=== PATIENT | female | born 1960 | race Caucasian/White ===

== ENCOUNTER 2017-09-22 00:15 | Inpatient (IN) | payer OTHER ==
[2017-09-22 01:35] LABS: URINE PH (Dip) POC 7.5 (5.0-8.5)
[2017-09-22 01:35] LABS: URINE BLOOD (Dip) POC Negative (NEGATIVE); URINE GLUCOSE (Dip) POC Negative (NEGATIVE); URINE KETONES (Dip) POC Negative (NEGATIVE); URINE LEUKOCYTE EST (Dip) POC Trace (NEGATIVE); URINE NITRITE (Dip) POC Negative (NEGATIVE); URINE TOTAL PROTEIN POC Trace (NEGATIVE)
[2017-09-22] MEDS: ONDANSETRON 4 MG INJ IV ×2 (01:57→16:31)
[2017-09-22] MEDS: morphine 2 MG INJ IV (01:57)
[2017-09-22 02:18] LABS: ADD MAN DIFF? NO
[2017-09-22 02:23] LABS: WHITE BLOOD COUNT 8.1 10^3/ul (4.8-10.8)
[2017-09-22 02:23] LABS: ABNORMAL IP MESSAGE 1; BASOPHIL # 0.1 10^3/ul (0.0-0.1); BASOPHILS % 0.9 % (0.0-2.0); EOSINOPHILS # 0.2 10^3/ul (0.0-0.5); EOSINOPHILS % 2.6 % (0.0-7.0); HEMATOCRIT 40.7 % (37.0-47.0); HEMOGLOBIN 13.4 g/dl (12.0-16.0); LYMPHOCYTES # 2.2 10^3/ul (0.8-2.9); LYMPHOCYTES % 26.8 % (15.0-51.0); MEAN CORPUSCULAR HEMOGLOBIN 28.8 pg (29.0-33.0); MEAN CORPUSCULAR HGB CONC 32.9 g/dl (32.0-37.0); MEAN CORPUSCULAR VOLUME 87.5 fl (82.0-101.0); MONOCYTE # 0.7 10^3/ul (0.3-0.9); NEUTROPHIL # 4.9 10^3/ul (1.6-7.5); NEUTROPHILS % 60.3 % (39.0-77.0); PLATELET COUNT 199 10^3/UL (140-415); RED BLOOD COUNT 4.65 10^6/ul (4.20-5.40); RED CELL DISTRIBUTION WIDTH 13.4 % (11.5-14.5)
[2017-09-22 02:32] LABS: MEAN PLATELET VOLUME 13.1 fl (7.4-10.4); POSITIVE DIFF @See below
[2017-09-22 02:42] LABS: ALANINE AMINOTRANSFERASE 616 IU/L (13-69); ALBUMIN 4.5 g/dl (3.3-4.9); ALBUMIN/GLOBULIN RATIO 1.15; ALKALINE PHOSPHATASE 325 IU/L (42-121); ANION GAP 18 (8-16); ASPARTATE AMINO TRANSFERASE 177 IU/L (15-46); BILIRUBIN,INDIRECT 0.5 mg/dl (0-1.1); BILIRUBIN,TOTAL 1.1 mg/dl (0.2-1.3); BLOOD UREA NITROGEN 10 mg/dl (7-20); CALCIUM 9.7 mg/dl (8.4-10.2); CARBON DIOXIDE 29 mmol/L (21-31); CHLORIDE 103 mmol/L (97-110); CREATININE 0.66 mg/dl (0.44-1.00); GLUCOSE 131 mg/dl (70-220); LIPASE 1526 U/L (23-300); POTASSIUM 3.9 mmol/L (3.5-5.1); SODIUM 146 mmol/L (135-144); TOTAL PROTEIN 8.4 g/dl (6.1-8.1)
[2017-09-22] MEDS: KETOROLAC 30 MG INJ IV ×2 (03:54→03:59)
[2017-09-22] MEDS: SOD CHLORIDE 0.9% 500 ML IV (03:54)
[2017-09-22] MEDS: PANTOPRAZOLE (EC) 40 MG TAB PO (06:00)
[2017-09-22] MEDS ORDERED: DOCUSATE SODIUM 100 MG CAP PO (08:00)
[2017-09-22] MEDS ORDERED: morphine 2 MG INJ IV (08:00)
[2017-09-22] MEDS ORDERED: HYDROCODONE/APAP (5/325) TAB PO ×2 (08:00)
[2017-09-22] MEDS ORDERED: MAGNESIUM HYDROXIDE 30ML CUP PO (08:00)
[2017-09-22] MEDS: D5W-0.45 NACL + KCL 20 MEQ 1,000 ML IV ×2 (08:00→20:22)
[2017-09-22] MEDS ORDERED: BISACODYL 10 MG SUPP PR (08:00)
[2017-09-22] MEDS ORDERED: NACL 0.9% 3 ML SYG IV (08:00)
[2017-09-22] MEDS: FISH OIL 1,000 MG CAP PO ×2 (09:00→20:25)
[2017-09-22] MEDS: CHOLECALCIFEROL 1,000 UNIT TAB PO (09:00)
[2017-09-22 10:37] LABS: INR 0.91; PROTIME 12.3 Sec (11.9-14.9)
[2017-09-22 10:38] LABS: PARTIAL THROMBOPLASTIN TIME 28.4 Sec (25.0-35.0)
[2017-09-22 10:42] LABS: ALANINE AMINOTRANSFERASE 535 IU/L (13-69); ALBUMIN/GLOBULIN RATIO 1.14; ALKALINE PHOSPHATASE 306 IU/L (42-121); AMYLASE 87 U/L (11-123); ANION GAP 15 (8-16); ASPARTATE AMINO TRANSFERASE 148 IU/L (15-46); BILIRUBIN,INDIRECT 0.5 mg/dl (0-1.1); BLOOD UREA NITROGEN 9 mg/dl (7-20); CALCIUM 9.5 mg/dl (8.4-10.2); CARBON DIOXIDE 26 mmol/L (21-31); CHLORIDE 105 mmol/L (97-110); CHOL/HDL RATIO 8.5 RATIO; CHOLESTEROL 318 mg/dl (100-200); CREATININE 0.64 mg/dl (0.44-1.00); GLUCOSE 120 mg/dl (70-220); HDL CHOLESTEROL 37 mg/dl (35-98); LDL CHOLESTEROL,CALCULATED 219 mg/dl; LIPASE 833 U/L (23-300); POTASSIUM 4.4 mmol/L (3.5-5.1); SODIUM 142 mmol/L (135-144); TOTAL PROTEIN 7.5 g/dl (6.1-8.1); TRIGLYCERIDES 309 mg/dl (0-149)
[2017-09-22] MEDS ORDERED: PANTOPRAZOLE 40 MG INJ IV (10:44)
[2017-09-22] MEDS: ACETAMINOPHEN 325 MG TAB PO ×2 (16:31→22:44)
[2017-09-22] MEDS: ATORVASTATIN 20 MG TAB PO (20:25)
[2017-09-23] MEDS: D5W-0.45 NACL + KCL 20 MEQ 1,000 ML IV ×5 (04:52→23:37)
[2017-09-23 05:24] LABS: ADD MAN DIFF? NO
[2017-09-23 05:29] LABS: BASOPHIL # 0.1 10^3/ul (0.0-0.1); BASOPHILS % 0.7 % (0.0-2.0); EOSINOPHILS # 0.2 10^3/ul (0.0-0.5); EOSINOPHILS % 2.1 % (0.0-7.0); HEMATOCRIT 34.4 % (37.0-47.0); HEMOGLOBIN 11.7 g/dl (12.0-16.0); LYMPHOCYTES # 1.8 10^3/ul (0.8-2.9); LYMPHOCYTES % 23.8 % (15.0-51.0); MEAN CORPUSCULAR HEMOGLOBIN 29.4 pg (29.0-33.0); MEAN CORPUSCULAR VOLUME 86.4 fl (82.0-101.0); MONOCYTE # 0.5 10^3/ul (0.3-0.9); MONOCYTES % 6.3 % (0.0-11.0); NEUTROPHIL # 5.1 10^3/ul (1.6-7.5); NEUTROPHILS % 66.8 % (39.0-77.0); PLATELET COUNT 200 10^3/UL (140-415); RED BLOOD COUNT 3.98 10^6/ul (4.20-5.40); RED CELL DISTRIBUTION WIDTH 13.8 % (11.5-14.5)
[2017-09-23 05:29] LABS: WHITE BLOOD COUNT 7.6 10^3/ul (4.8-10.8)
[2017-09-23 05:57] LABS: AMYLASE 55 U/L (11-123)
[2017-09-23 05:57] LABS: LIPASE 314 U/L (23-300)
[2017-09-23 06:05] LABS: ALANINE AMINOTRANSFERASE 452 IU/L (13-69); ALBUMIN 3.6 g/dl (3.3-4.9); ALBUMIN/GLOBULIN RATIO 1.02; ALKALINE PHOSPHATASE 290 IU/L (42-121); ANION GAP 14 (8-16); ASPARTATE AMINO TRANSFERASE 134 IU/L (15-46); BILIRUBIN,INDIRECT 0.7 mg/dl (0-1.1); BILIRUBIN,TOTAL 0.7 mg/dl (0.2-1.3); BLOOD UREA NITROGEN 8 mg/dl (7-20); CALCIUM 9.2 mg/dl (8.4-10.2); CARBON DIOXIDE 25 mmol/L (21-31); CHLORIDE 108 mmol/L (97-110); CREATININE 0.71 mg/dl (0.44-1.00); GLUCOSE 141 mg/dl (70-220); MAGNESIUM 1.8 mg/dl (1.7-2.5); PHOSPHORUS 4.6 mg/dl (2.5-4.9); POTASSIUM 4.1 mmol/L (3.5-5.1); SODIUM 143 mmol/L (135-144); TOTAL PROTEIN 7.1 g/dl (6.1-8.1)
[2017-09-23] MEDS: FISH OIL 1,000 MG CAP PO ×2 (08:10→21:00)
[2017-09-23] MEDS: CHOLECALCIFEROL 1,000 UNIT TAB PO (08:11)
[2017-09-23 08:32] LABS: HAAIG REFLEX REFLEX FILED
[2017-09-23 09:25] LABS: HEPATITIS B SURFACE ANTIGEN NEGATIVE (NEGATIVE)
[2017-09-23 09:43] LABS: HEPATITIS B CORE ANTIBODY NEGATIVE (NEGATIVE); HEPATITIS C VIRAL ANTIBODY NEGATIVE (NEGATIVE)
[2017-09-23] MEDS: ATORVASTATIN 20 MG TAB PO (21:00)
[2017-09-24 05:55] LABS: ADD MAN DIFF? NO
[2017-09-24 06:20] LABS: WHITE BLOOD COUNT 6.2 10^3/ul (4.8-10.8)
[2017-09-24 06:20] LABS: BASOPHILS % 0.5 % (0.0-2.0); EOSINOPHILS # 0.1 10^3/ul (0.0-0.5); EOSINOPHILS % 1.3 % (0.0-7.0); HEMATOCRIT 34.2 % (37.0-47.0); HEMOGLOBIN 11.7 g/dl (12.0-16.0); LYMPHOCYTES # 1.2 10^3/ul (0.8-2.9); LYMPHOCYTES % 18.4 % (15.0-51.0); MEAN CORPUSCULAR HEMOGLOBIN 29.8 pg (29.0-33.0); MEAN CORPUSCULAR HGB CONC 34.2 g/dl (32.0-37.0); MEAN CORPUSCULAR VOLUME 87.2 fl (82.0-101.0); MEAN PLATELET VOLUME 11.2 fl (7.4-10.4); MONOCYTE # 0.5 10^3/ul (0.3-0.9); MONOCYTES % 7.4 % (0.0-11.0); NEUTROPHIL # 4.5 10^3/ul (1.6-7.5); NEUTROPHILS % 71.9 % (39.0-77.0); PLATELET COUNT 192 10^3/UL (140-415); RED BLOOD COUNT 3.92 10^6/ul (4.20-5.40); RED CELL DISTRIBUTION WIDTH 13.7 % (11.5-14.5)
[2017-09-24 06:47] LABS: ALANINE AMINOTRANSFERASE 365 IU/L (13-69); ALBUMIN 3.9 g/dl (3.3-4.9); ALBUMIN/GLOBULIN RATIO 1.44; ALKALINE PHOSPHATASE 266 IU/L (42-121); ANION GAP 14 (8-16); ASPARTATE AMINO TRANSFERASE 108 IU/L (15-46); BILIRUBIN,INDIRECT 0.6 mg/dl (0-1.1); BILIRUBIN,TOTAL 0.6 mg/dl (0.2-1.3); BLOOD UREA NITROGEN 6 mg/dl (7-20); CALCIUM 9.2 mg/dl (8.4-10.2); CARBON DIOXIDE 25 mmol/L (21-31); CHLORIDE 107 mmol/L (97-110); CREATININE 0.67 mg/dl (0.44-1.00); GLUCOSE 135 mg/dl (70-220); LIPASE 240 U/L (23-300); POTASSIUM 4.3 mmol/L (3.5-5.1); SODIUM 142 mmol/L (135-144); TOTAL PROTEIN 6.6 g/dl (6.1-8.1)
[2017-09-24 07:04] LABS: AMYLASE 49 U/L (11-123)
[2017-09-24 07:04] LABS: PHOSPHORUS 4.4 mg/dl (2.5-4.9)
[2017-09-24 07:04] LABS: MAGNESIUM 1.7 mg/dl (1.7-2.5)
[2017-09-24] MEDS: FISH OIL 1,000 MG CAP PO ×2 (08:23→20:40)
[2017-09-24] MEDS: CHOLECALCIFEROL 1,000 UNIT TAB PO (08:24)
[2017-09-24] MEDS: D5W-0.45 NACL + KCL 20 MEQ 1,000 ML IV ×2 (10:00→14:32)
[2017-09-24] MEDS ORDERED: MIDAZOLAM 1 MG/ML 2 ML INJ (11:42)
[2017-09-24] MEDS ORDERED: FENTAnyl 50 MCG/ML VIAL ×2 (11:42→12:53)
[2017-09-24] MEDS: IOHEXOL 300MG/ML 30 ML BTL (11:45)
[2017-09-24] MEDS: INDOMETHACIN 50 MG SUPP PR (11:45)
[2017-09-24] MEDS ORDERED: PROPOFOL 60 ML (13:20)
[2017-09-24] MEDS ORDERED: LIDOCAINE 2% (SDV) 5 ML INJ (13:20)
[2017-09-24] MEDS ORDERED: ONDANSETRON 4 MG INJ (13:22)
[2017-09-24] MEDS: LACTATED RINGER'S 1,000 ML IV ×2 (15:05→20:05)
[2017-09-24] MEDS ORDERED: GLUCAGON 1 MG INJ (16:00)
[2017-09-24] MEDS ORDERED: EPINEPHrine 0.1 MG/ML SYG (16:00)
[2017-09-24] MEDS: PANTOPRAZOLE 40 MG INJ IV (17:19)
[2017-09-24] MEDS: ACETAMINOPHEN 325 MG TAB PO (17:25)
[2017-09-24 18:37] LABS: CARCINOEMBRYONIC ANTIGEN 1.3 ng/ml (0.0-5.0)
[2017-09-24 18:41] LABS: CANCER ANTIGEN 19-9 60.3 U/ml (0.0-37.0)
[2017-09-24] MEDS: ATORVASTATIN 20 MG TAB PO (20:40)
[2017-09-25] MEDS: ACETAMINOPHEN 325 MG TAB PO (00:35)
[2017-09-25] MEDS: LACTATED RINGER'S 1,000 ML IV ×4 (01:34→17:37)
[2017-09-25] MEDS: PANTOPRAZOLE 40 MG INJ IV ×2 (05:31→22:02)
[2017-09-25 06:24] LABS: ADD MAN DIFF? NO
[2017-09-25 06:33] LABS: BASOPHILS % 0.4 % (0.0-2.0); EOSINOPHILS # 0.1 10^3/ul (0.0-0.5); EOSINOPHILS % 1.1 % (0.0-7.0); HEMATOCRIT 31.9 % (37.0-47.0); HEMOGLOBIN 10.6 g/dl (12.0-16.0); LYMPHOCYTES # 1.7 10^3/ul (0.8-2.9); LYMPHOCYTES % 21.5 % (15.0-51.0); MEAN CORPUSCULAR HEMOGLOBIN 29.1 pg (29.0-33.0); MEAN CORPUSCULAR HGB CONC 33.2 g/dl (32.0-37.0); MEAN CORPUSCULAR VOLUME 87.6 fl (82.0-101.0); MEAN PLATELET VOLUME 11.6 fl (7.4-10.4); MONOCYTE # 0.7 10^3/ul (0.3-0.9); MONOCYTES % 8.3 % (0.0-11.0); NEUTROPHIL # 5.5 10^3/ul (1.6-7.5); NEUTROPHILS % 68.5 % (39.0-77.0); PLATELET COUNT 178 10^3/UL (140-415); RED BLOOD COUNT 3.64 10^6/ul (4.20-5.40); RED CELL DISTRIBUTION WIDTH 13.2 % (11.5-14.5)
[2017-09-25 06:50] LABS: INR 0.98; PROTIME 13.1 Sec (11.9-14.9)
[2017-09-25 06:56] LABS: PARTIAL THROMBOPLASTIN TIME 31.7 Sec (25.0-35.0)
[2017-09-25 08:24] LABS: ALANINE AMINOTRANSFERASE 304 IU/L (13-69); ALBUMIN 3.4 g/dl (3.3-4.9); ALBUMIN/GLOBULIN RATIO 1.09; ALKALINE PHOSPHATASE 235 IU/L (42-121); ANION GAP 16 (8-16); ASPARTATE AMINO TRANSFERASE 109 IU/L (15-46); BILIRUBIN,INDIRECT 0.5 mg/dl (0-1.1); BILIRUBIN,TOTAL 0.5 mg/dl (0.2-1.3); BLOOD UREA NITROGEN 8 mg/dl (7-20); CARBON DIOXIDE 25 mmol/L (21-31); CHLORIDE 107 mmol/L (97-110); CREATININE 0.64 mg/dl (0.44-1.00); GLUCOSE 91 mg/dl (70-220); LIPASE 798 U/L (23-300); POTASSIUM 3.7 mmol/L (3.5-5.1); SODIUM 144 mmol/L (135-144); TOTAL PROTEIN 6.5 g/dl (6.1-8.1)
[2017-09-25] MEDS: CHOLECALCIFEROL 1,000 UNIT TAB PO (08:55)
[2017-09-25] MEDS: FISH OIL 1,000 MG CAP PO ×2 (08:55→22:01)
[2017-09-25 08:57] LABS: PHOSPHORUS 4.5 mg/dl (2.5-4.9)
[2017-09-25 08:57] LABS: MAGNESIUM 1.6 mg/dl (1.7-2.5)
[2017-09-25] MEDS ORDERED: HYDROmorphONE 2 MG TAB PO (10:00)
[2017-09-25] MEDS ORDERED: KETOROLAC 30 MG INJ IV (10:00)
[2017-09-25] MEDS: LEVOFLOXACIN 500MG/D5W (PMX) 100 ML IVPB (10:11)
[2017-09-25] MEDS: CALCIUM CARBONATE 500 MG CHEW TAB PO ×2 (13:44→17:39)
[2017-09-25] MEDS: KETOROLAC 30 MG INJ IV (13:46)
[2017-09-25] MEDS: ATORVASTATIN 20 MG TAB PO (22:01)
[2017-09-26] MEDS: LACTATED RINGER'S 1,000 ML IV ×4 (03:54→23:48)
[2017-09-26 06:03] LABS: ADD MAN DIFF? NO
[2017-09-26 06:13] LABS: BASOPHILS % 0.5 % (0.0-2.0); EOSINOPHILS # 0.1 10^3/ul (0.0-0.5); EOSINOPHILS % 1.6 % (0.0-7.0); HEMATOCRIT 30.3 % (37.0-47.0); HEMOGLOBIN 10.4 g/dl (12.0-16.0); LYMPHOCYTES # 1.6 10^3/ul (0.8-2.9); LYMPHOCYTES % 19.6 % (15.0-51.0); MEAN CORPUSCULAR HEMOGLOBIN 29.9 pg (29.0-33.0); MEAN CORPUSCULAR HGB CONC 34.3 g/dl (32.0-37.0); MEAN CORPUSCULAR VOLUME 87.1 fl (82.0-101.0); MEAN PLATELET VOLUME 10.9 fl (7.4-10.4); MONOCYTE # 0.5 10^3/ul (0.3-0.9); MONOCYTES % 6.5 % (0.0-11.0); NEUTROPHIL # 5.7 10^3/ul (1.6-7.5); NEUTROPHILS % 71.3 % (39.0-77.0); PLATELET COUNT 183 10^3/UL (140-415); RED BLOOD COUNT 3.48 10^6/ul (4.20-5.40); RED CELL DISTRIBUTION WIDTH 13.5 % (11.5-14.5)
[2017-09-26 06:46] LABS: LIPASE 956 U/L (23-300)
[2017-09-26 06:53] LABS: ALANINE AMINOTRANSFERASE 225 IU/L (13-69); ALBUMIN 3.4 g/dl (3.3-4.9); ALBUMIN/GLOBULIN RATIO 1.09; ALKALINE PHOSPHATASE 227 IU/L (42-121); AMYLASE 133 U/L (11-123); ANION GAP 17 (8-16); ASPARTATE AMINO TRANSFERASE 62 IU/L (15-46); BILIRUBIN,INDIRECT 0.6 mg/dl (0-1.1); BILIRUBIN,TOTAL 0.6 mg/dl (0.2-1.3); BLOOD UREA NITROGEN 8 mg/dl (7-20); CALCIUM 8.9 mg/dl (8.4-10.2); CARBON DIOXIDE 24 mmol/L (21-31); CHLORIDE 105 mmol/L (97-110); CREATININE 0.64 mg/dl (0.44-1.00); GLUCOSE 75 mg/dl (70-220); POTASSIUM 3.7 mmol/L (3.5-5.1); SODIUM 142 mmol/L (135-144); TOTAL PROTEIN 6.5 g/dl (6.1-8.1)
[2017-09-26 07:50] LABS: MAGNESIUM 1.5 mg/dl (1.7-2.5)
[2017-09-26] MEDS: CHOLECALCIFEROL 1,000 UNIT TAB PO (09:00)
[2017-09-26] MEDS: FISH OIL 1,000 MG CAP PO ×2 (09:00→20:22)
[2017-09-26] MEDS: CALCIUM CARBONATE 500 MG CHEW TAB PO ×3 (09:20→17:23)
[2017-09-26] MEDS: PANTOPRAZOLE 40 MG INJ IV ×2 (09:21→20:22)
[2017-09-26] MEDS: KETOROLAC 30 MG INJ IV (09:21)
[2017-09-26] MEDS: LEVOFLOXACIN 500MG/D5W (PMX) 100 ML IVPB (09:21)
[2017-09-26] MEDS: MAGNESIUM OXIDE 400 MG TAB PO ×2 (10:10→20:22)
[2017-09-26] MEDS: MAGNESIUM SULFATE 2 GM/50 ML 50 ML IVPB (11:04)
[2017-09-26 12:00] LABS: ADD UMIC NO; UR ASCORBIC ACID NEGATIVE (NEGATIVE); UR BILIRUBIN (Dip) NEGATIVE (NEGATIVE); UR BLOOD (Dip) NEGATIVE (NEGATIVE); UR CLARITY CLEAR (CLEAR); UR COLOR STRAW (YELLOW); UR GLUCOSE (Dip) NEGATIVE (NEGATIVE); UR KETONES (Dip) 1+ mg/dL (NEGATIVE); UR LEUKOCYTE ESTERASE (Dip) NEGATIVE Leu/ul (NEGATIVE); UR NITRITE (Dip) NEGATIVE (NEGATIVE); UR SPECIFIC GRAVITY (Dip) 1.004 (1.003-1.030); UR TOTAL PROTEIN (Dip) NEGATIVE (NEGATIVE); UR UROBILINOGEN (Dip) NEGATIVE (NEGATIVE)
[2017-09-26] MEDS: SUCRALFATE 1 GM TAB PO ×2 (17:23→20:22)
[2017-09-26] MEDS: ATORVASTATIN 20 MG TAB PO (20:22)
[2017-09-27] MEDS: LACTATED RINGER'S 1,000 ML IV (02:15)
[2017-09-27 06:24] LABS: ALANINE AMINOTRANSFERASE 180 IU/L (13-69); ALBUMIN 3.9 g/dl (3.3-4.9); ALBUMIN/GLOBULIN RATIO 1.21; ALKALINE PHOSPHATASE 234 IU/L (42-121); AMYLASE 68 U/L (11-123); ANION GAP 17 (8-16); ASPARTATE AMINO TRANSFERASE 44 IU/L (15-46); BILIRUBIN,INDIRECT 0.7 mg/dl (0-1.1); BILIRUBIN,TOTAL 0.7 mg/dl (0.2-1.3); BLOOD UREA NITROGEN 8 mg/dl (7-20); CALCIUM 9.2 mg/dl (8.4-10.2); CARBON DIOXIDE 25 mmol/L (21-31); CHLORIDE 105 mmol/L (97-110); CREATININE 0.64 mg/dl (0.44-1.00); GLUCOSE 86 mg/dl (70-220); LIPASE 379 U/L (23-300); MAGNESIUM 1.9 mg/dl (1.7-2.5); POTASSIUM 3.7 mmol/L (3.5-5.1); SODIUM 143 mmol/L (135-144); TOTAL PROTEIN 7.1 g/dl (6.1-8.1)
[2017-09-27] MEDS: MAGNESIUM OXIDE 400 MG TAB PO (08:51)
[2017-09-27] MEDS: CALCIUM CARBONATE 500 MG CHEW TAB PO (08:51)
[2017-09-27] MEDS: SUCRALFATE 1 GM TAB PO (08:51)
[2017-09-27] MEDS: FISH OIL 1,000 MG CAP PO (08:51)
[2017-09-27] MEDS: PANTOPRAZOLE 40 MG INJ IV (08:52)
[2017-09-27] MEDS: CHOLECALCIFEROL 1,000 UNIT TAB PO (08:52)
[2017-09-27] MEDS: LEVOFLOXACIN 500MG/D5W (PMX) 100 ML IVPB (08:53)
== END 2017-09-27 10:47 | disposition home or self-care (01) | DRG 444 ==
LOC: E/R 00:15 → MS3 04:44 → MS2 17:38
PROVIDERS: Internal Medicine
PROC: 0F7D8DZ Dilation of Pancreatic Duct with Intraluminal Device, Via Natural or Artificial Opening Endoscopic (ICD-10-PCS; principal; 2017-09-24 11:36)
PROC: 0FC98ZZ Extirpation of Matter from Common Bile Duct, Via Natural or Artificial Opening Endoscopic (ICD-10-PCS; 2017-09-24 11:36)
DX: K80.51 Calculus of bile duct without cholangitis or cholecystitis with obstruction (principal); K85.90 Acute pancreatitis without necrosis or infection, unspecified; K76.0 Fatty (change of) liver, not elsewhere classified; E78.5 Hyperlipidemia, unspecified; K21.9 Gastro-esophageal reflux disease without esophagitis
CPT/HCPCS: 36415; 74181; 74330; 76705; 80053; 80061; 81003; 82150; 82378; 83690; 83735; 84100; 85025; 85610; 85730; 86301; 86704; 86709; 86803; 87086; 87340; 96374; 96375; 99285-25

== ENCOUNTER 2017-11-08 03:20 | Inpatient (IN) | payer OTHER ==
[2017-11-08] MEDS: ONDANSETRON 4 MG INJ IV ×3 (03:49→15:03)
[2017-11-08] MEDS: SOD CHLORIDE 0.9% 1,000 ML IV ×3 (03:50→07:27)
[2017-11-08] MEDS: HYDROmorphONE 1 MG/ML SYG IV ×5 (03:50→21:21)
[2017-11-08 04:02] LABS: ADD MAN DIFF? NO
[2017-11-08 04:35] LABS: ALANINE AMINOTRANSFERASE 64 IU/L (13-69); ALBUMIN 4.3 g/dl (3.3-4.9); ALBUMIN/GLOBULIN RATIO 1.34; ALKALINE PHOSPHATASE 111 IU/L (42-121); ANION GAP 14 (8-16); ASPARTATE AMINO TRANSFERASE 67 IU/L (15-46); BILIRUBIN,INDIRECT 0.5 mg/dl (0-1.1); BILIRUBIN,TOTAL 0.5 mg/dl (0.2-1.3); BLOOD UREA NITROGEN 13 mg/dl (7-20); CALCIUM 9.1 mg/dl (8.4-10.2); CARBON DIOXIDE 23 mmol/L (21-31); CHLORIDE 106 mmol/L (97-110); CREATININE 0.72 mg/dl (0.44-1.00); GLUCOSE 126 mg/dl (70-220); POTASSIUM 4.3 mmol/L (3.5-5.1); SODIUM 139 mmol/L (135-144); TOTAL PROTEIN 7.5 g/dl (6.1-8.1)
[2017-11-08 04:39] LABS: BASOPHILS % 0.2 % (0.0-2.0); EOSINOPHILS % 0.1 % (0.0-7.0); HEMATOCRIT 36.1 % (37.0-47.0); HEMOGLOBIN 12.8 g/dl (12.0-16.0); LYMPHOCYTES # 1.3 10^3/ul (0.8-2.9); LYMPHOCYTES % 7.6 % (15.0-51.0); MEAN CORPUSCULAR HEMOGLOBIN 29.6 pg (29.0-33.0); MEAN CORPUSCULAR HGB CONC 35.5 g/dl (32.0-37.0); MEAN CORPUSCULAR VOLUME 83.4 fl (82.0-101.0); MEAN PLATELET VOLUME 11.1 fl (7.4-10.4); MONOCYTES % 5.6 % (0.0-11.0); NEUTROPHIL # 15.1 10^3/ul (1.6-7.5); PLATELET COUNT 307 10^3/UL (140-415); RED BLOOD COUNT 4.33 10^6/ul (4.20-5.40); RED CELL DISTRIBUTION WIDTH 12.9 % (11.5-14.5)
[2017-11-08 04:39] LABS: WHITE BLOOD COUNT 17.5 10^3/ul (4.8-10.8)
[2017-11-08 05:15] LABS: LACTIC ACID 1.5 mmol/L (0.5-2.0)
[2017-11-08 05:16] LABS: LIPASE 12045 U/L (23-300)
[2017-11-08] MEDS: morphine 4 MG/ML VIAL IV (05:39)
[2017-11-08] MEDS ORDERED: DEXTROSE 5%-0.45% NACL 1,000 ML IV (06:01)
[2017-11-08 06:17] LABS: TROPONIN-I < 0.012 ng/ml (0.00-0.12)
[2017-11-08] MEDS ORDERED: VANCOMYCIN IV PER PHARMACY XX (06:30)
[2017-11-08] MEDS ORDERED: IPRATROPIUM (NEB) 0.5 MG/2.5 ML AMP NEB (06:30)
[2017-11-08] MEDS ORDERED: HYDROmorphONE 0.5 MG/0.5 ML SYG IV ×2 (06:30)
[2017-11-08] MEDS ORDERED: NACL 0.9% 3 ML SYG IV (06:30)
[2017-11-08] MEDS ORDERED: BISACODYL 10 MG SUPP PR (06:30)
[2017-11-08 07:36] LABS: HEMATOCRIT 34.5 % (37.0-47.0); HEMOGLOBIN 11.9 g/dl (12.0-16.0)
[2017-11-08] MEDS: HYDROmorphONE 0.5 MG/0.5 ML SYG IV (07:36)
[2017-11-08] MEDS: MEROPENEM 2 GM in SOD CHLORIDE 0.9% 100 ML IVPB (07:44)
[2017-11-08] MEDS: LACTATED RINGER'S 1,000 ML IV ×3 (08:00→21:22)
[2017-11-08] MEDS ORDERED: HYDROmorphONE 1 MG/ML SYG IV ×2 (08:00→10:30)
[2017-11-08 08:02] LABS: INR 1.02; PROTIME 13.5 Sec (11.9-14.9); PT RATIO 1.1
[2017-11-08 08:03] LABS: PARTIAL THROMBOPLASTIN TIME 25.9 Sec (25.0-35.0)
[2017-11-08] MEDS: FAMOTIDINE 20 MG INJ IV ×2 (09:38→21:21)
[2017-11-08] MEDS: VANCOMYCIN 1.5 GM in DEXTROSE 5% 500 ML IVPB (10:28)
[2017-11-08 11:18] LABS: ADD UMIC YES; UR ASCORBIC ACID 40 mg/dL (NEGATIVE); UR BILIRUBIN (Dip) NEGATIVE (NEGATIVE); UR BLOOD (Dip) NEGATIVE (NEGATIVE); UR CLARITY SLIGHTLY CLOUDY (CLEAR); UR COLOR YELLOW (YELLOW); UR GLUCOSE (Dip) 1+ mg/dL (NEGATIVE); UR KETONES (Dip) TRACE mg/dL (NEGATIVE); UR LEUKOCYTE ESTERASE (Dip) NEGATIVE Leu/ul (NEGATIVE); UR MUCUS MODERATE /HPF (NONE SEEN); UR NITRITE (Dip) NEGATIVE (NEGATIVE); UR RBC 2 /HPF (0-5); UR SPECIFIC GRAVITY (Dip) 1.029 (1.003-1.030); UR SQUAMOUS EPITHELIAL CELL FEW /HPF (FEW); UR TOTAL PROTEIN (Dip) 1+ mg/dl (NEGATIVE); UR UROBILINOGEN (Dip) NEGATIVE (NEGATIVE); UR WBC 2 /HPF (0-5)
[2017-11-08 11:49] LABS: OPIATES Positive (NEGATIVE)
[2017-11-08 11:50] LABS: AMPHETAMINE/METHAMPHETAMINE Negative (NEGATIVE); BARBITURATES Negative (NEGATIVE); BENZODIAZEPINES Negative (NEGATIVE); CANNABINOIDS Negative (NEGATIVE); COCAINE Negative (NEGATIVE)
[2017-11-08 14:53] LABS: HEMATOCRIT 35.6 % (37.0-47.0); HEMOGLOBIN 12.4 g/dl (12.0-16.0)
[2017-11-08] MEDS: MEROPENEM 1 GM/50ML(PMX) 50 ML IVPB ×2 (14:53→21:21)
[2017-11-08] MEDS: LORAZEPAM 2 MG INJ IV (15:43)
[2017-11-08] MEDS ORDERED: CEPASTAT LOZENGE MT (16:30)
[2017-11-08 22:39] LABS: HEMATOCRIT 35.9 % (37.0-47.0); HEMOGLOBIN 12.4 g/dl (12.0-16.0)
[2017-11-09] MEDS: HYDROmorphONE 1 MG/ML SYG IV ×6 (02:20→21:47)
[2017-11-09] MEDS: ONDANSETRON 4 MG INJ IV ×5 (02:20→21:49)
[2017-11-09] MEDS: LACTATED RINGER'S 1,000 ML IV ×3 (03:41→17:33)
[2017-11-09 05:46] LABS: ADD MAN DIFF? NO
[2017-11-09 05:53] LABS: BASOPHIL # 0.1 10^3/ul (0.0-0.1); BASOPHILS % 0.4 % (0.0-2.0); EOSINOPHILS % 0.1 % (0.0-7.0); HEMATOCRIT 37.9 % (37.0-47.0); LYMPHOCYTES # 1.3 10^3/ul (0.8-2.9); LYMPHOCYTES % 8.6 % (15.0-51.0); MEAN CORPUSCULAR HEMOGLOBIN 29.2 pg (29.0-33.0); MEAN CORPUSCULAR HGB CONC 34.3 g/dl (32.0-37.0); MEAN CORPUSCULAR VOLUME 85.2 fl (82.0-101.0); MEAN PLATELET VOLUME 11.1 fl (7.4-10.4); MONOCYTE # 0.8 10^3/ul (0.3-0.9); MONOCYTES % 5.1 % (0.0-11.0); NEUTROPHIL # 13.3 10^3/ul (1.6-7.5); NEUTROPHILS % 85.4 % (39.0-77.0); PLATELET COUNT 334 10^3/UL (140-415); RED BLOOD COUNT 4.45 10^6/ul (4.20-5.40); RED CELL DISTRIBUTION WIDTH 13.5 % (11.5-14.5)
[2017-11-09 05:53] LABS: WHITE BLOOD COUNT 15.5 10^3/ul (4.8-10.8)
[2017-11-09] MEDS: MEROPENEM 1 GM/50ML(PMX) 50 ML IVPB ×3 (06:20→22:11)
[2017-11-09 06:21] LABS: AMYLASE 496 U/L (11-123)
[2017-11-09 06:28] LABS: ALANINE AMINOTRANSFERASE 42 IU/L (13-69); ALBUMIN 3.1 g/dl (3.3-4.9); ALBUMIN/GLOBULIN RATIO 1.06; ALKALINE PHOSPHATASE 75 IU/L (42-121); ANION GAP 13 (8-16); ASPARTATE AMINO TRANSFERASE 30 IU/L (15-46); BILIRUBIN,INDIRECT 0.7 mg/dl (0-1.1); BILIRUBIN,TOTAL 0.7 mg/dl (0.2-1.3); BLOOD UREA NITROGEN 10 mg/dl (7-20); CALCIUM 7.8 mg/dl (8.4-10.2); CARBON DIOXIDE 24 mmol/L (21-31); CHLORIDE 103 mmol/L (97-110); CHOL/HDL RATIO 7.3 RATIO; CHOLESTEROL 243 mg/dl (100-200); CREATININE 0.59 mg/dl (0.44-1.00); GLUCOSE 127 mg/dl (70-220); HDL CHOLESTEROL 33 mg/dl (35-98); LDL CHOLESTEROL,CALCULATED 187 mg/dl; MAGNESIUM 1.5 mg/dl (1.7-2.5); POTASSIUM 3.7 mmol/L (3.5-5.1); SODIUM 136 mmol/L (135-144); TRIGLYCERIDES 116 mg/dl (0-149)
[2017-11-09 07:02] LABS: LIPASE 4917 U/L (23-300)
[2017-11-09] MEDS: ALBUTEROL/IPRATROPIUM (NEB) 3 ML AMP HHN ×2 (07:50→20:49)
[2017-11-09 07:52] LABS: HEMOGLOBIN A1C 5.6 % (0-5.9)
[2017-11-09] MEDS: FAMOTIDINE 20 MG INJ IV (08:28)
[2017-11-09] MEDS: MAGNESIUM SULFATE 4 GM/100 ML 100 ML IVPB (10:48)
[2017-11-09] MEDS: BISACODYL 10 MG SUPP PR (14:22)
[2017-11-09 15:37] LABS: HEMATOCRIT 41.6 % (37.0-47.0); HEMOGLOBIN 14.2 g/dl (12.0-16.0)
[2017-11-09] MEDS: PANTOPRAZOLE 40 MG INJ IV (17:32)
[2017-11-09 22:23] LABS: HEMATOCRIT 40.7 % (37.0-47.0)
[2017-11-10] MEDS: LACTATED RINGER'S 1,000 ML IV ×5 (00:44→18:49)
[2017-11-10] MEDS: ONDANSETRON 4 MG INJ IV ×3 (04:43→20:24)
[2017-11-10] MEDS: HYDROmorphONE 1 MG/ML SYG IV ×5 (04:44→22:40)
[2017-11-10] MEDS: PANTOPRAZOLE 40 MG INJ IV ×2 (05:10→17:45)
[2017-11-10] MEDS: MEROPENEM 1 GM/50ML(PMX) 50 ML IVPB ×3 (05:10→22:38)
[2017-11-10 06:30] LABS: HEMATOCRIT 37.7 % (37.0-47.0); HEMOGLOBIN 12.7 g/dl (12.0-16.0); MEAN CORPUSCULAR HEMOGLOBIN 29.1 pg (29.0-33.0); MEAN CORPUSCULAR HGB CONC 33.7 g/dl (32.0-37.0); MEAN CORPUSCULAR VOLUME 86.5 fl (82.0-101.0); MEAN PLATELET VOLUME 11.3 fl (7.4-10.4); PLATELET COUNT 336 10^3/UL (140-415); RED BLOOD COUNT 4.36 10^6/ul (4.20-5.40); RED CELL DISTRIBUTION WIDTH 14.1 % (11.5-14.5)
[2017-11-10 06:30] LABS: WHITE BLOOD COUNT 15.7 10^3/ul (4.8-10.8)
[2017-11-10 06:58] LABS: ALANINE AMINOTRANSFERASE 28 IU/L (13-69); ALBUMIN 2.8 g/dl (3.3-4.9); ALBUMIN/GLOBULIN RATIO 0.93; ALKALINE PHOSPHATASE 74 IU/L (42-121); ANION GAP 14 (8-16); ASPARTATE AMINO TRANSFERASE 25 IU/L (15-46); BILIRUBIN,INDIRECT 0.6 mg/dl (0-1.1); BILIRUBIN,TOTAL 0.6 mg/dl (0.2-1.3); BLOOD UREA NITROGEN 23 mg/dl (7-20); CALCIUM 7.5 mg/dl (8.4-10.2); CARBON DIOXIDE 23 mmol/L (21-31); CHLORIDE 105 mmol/L (97-110); GLUCOSE 156 mg/dl (70-220); POTASSIUM 3.8 mmol/L (3.5-5.1); SODIUM 138 mmol/L (135-144); TOTAL PROTEIN 5.8 g/dl (6.1-8.1)
[2017-11-10 07:06] LABS: PHOSPHORUS 2.9 mg/dl (2.5-4.9)
[2017-11-10 07:08] LABS: ADD MAN DIFF? YES; POSITIVE DIFF @See below
[2017-11-10 07:26] LABS: MAGNESIUM 2.8 mg/dl (1.7-2.5)
[2017-11-10 09:23] LABS: LIPASE 1738 U/L (23-300)
[2017-11-10 09:23] LABS: AMYLASE 289 U/L (11-123)
[2017-11-10 09:48] LABS: ANISOCYTOSIS 1+ (0-0); BAND NEUTROPHILS #M 3.6 10^3/ul (0.0-0.6); BAND NEUTROPHILS % (M) 23 % (0-4); BURR CELLS 1+ (0-0); GIANT THROMBO% (M) 4 % (0-0); LYMPHOCYTES #M 0.6 10^3/ul (0.8-2.9); LYMPHOCYTES % (M) 4 % (15-51); MICROCYTOSIS 1+ (0-0); MONOCYTE #M 1.2 10^3/ul (0.3-0.9); MONOCYTES % (M) 8 % (0-11); PLATELET ESTIMATE NORMAL; POIKILOCYTOSIS 1+ (0-0); POLYCHROMASIA 1+ (0-0); REACTIVE LYMPHOCYTES #M 0.1 10^3/ul (0.0-0.0); REACTIVE LYMPHOCYTES% (M) 1 % (0-0); SEG NEUT #M 10.6 10^3/ul (1.6-7.5); SEGMENTED NEUTROPHILS (M) % 64 % (39-77); SMUDGE%M 8 % (0-0)
[2017-11-11] MEDS: ALBUTEROL/IPRATROPIUM (NEB) 3 ML AMP HHN ×4 (00:21→19:08)
[2017-11-11] MEDS: ONDANSETRON 4 MG INJ IV ×3 (00:46→18:15)
[2017-11-11] MEDS: HYDROmorphONE 1 MG/ML SYG IV ×7 (00:46→21:27)
[2017-11-11] MEDS: LACTATED RINGER'S 1,000 ML IV ×4 (00:53→14:56)
[2017-11-11] MEDS: MEROPENEM 1 GM/50ML(PMX) 50 ML IVPB ×3 (05:39→21:31)
[2017-11-11] MEDS: PANTOPRAZOLE 40 MG INJ IV ×2 (05:41→17:21)
[2017-11-11 07:01] LABS: HEMATOCRIT 32.8 % (37.0-47.0); MEAN CORPUSCULAR HEMOGLOBIN 29.6 pg (29.0-33.0); MEAN CORPUSCULAR HGB CONC 33.5 g/dl (32.0-37.0); MEAN CORPUSCULAR VOLUME 88.2 fl (82.0-101.0); PLATELET COUNT 333 10^3/UL (140-415); RED BLOOD COUNT 3.72 10^6/ul (4.20-5.40); RED CELL DISTRIBUTION WIDTH 14.3 % (11.5-14.5)
[2017-11-11 07:06] LABS: ADD MAN DIFF? YES; POSITIVE DIFF @See below
[2017-11-11 07:10] LABS: ANION GAP 12 (8-16); BLOOD UREA NITROGEN 25 mg/dl (7-20); CALCIUM 7.8 mg/dl (8.4-10.2); CARBON DIOXIDE 24 mmol/L (21-31); CHLORIDE 106 mmol/L (97-110); CREATININE 0.97 mg/dl (0.44-1.00); GLUCOSE 108 mg/dl (70-220); POTASSIUM 3.9 mmol/L (3.5-5.1); SODIUM 138 mmol/L (135-144)
[2017-11-11 07:32] LABS: LIPASE 645 U/L (23-300)
[2017-11-11 07:32] LABS: AMYLASE 170 U/L (11-123)
[2017-11-11 10:20] LABS: BAND NEUTROPHILS #M 1.9 10^3/ul (0.0-0.6); BAND NEUTROPHILS % (M) 14 % (0-4); LYMPHOCYTES #M 1.5 10^3/ul (0.8-2.9); LYMPHOCYTES % (M) 11 % (15-51); MONOCYTE #M 0.9 10^3/ul (0.3-0.9); MONOCYTES % (M) 7 % (0-11); PLASMA CELLS #M 0.1 10^3/ul (0.0-0.0); PLASMAC%(M) 1 % (0); PLATELET ESTIMATE NORMAL; POLYCHROMASIA 1+ (0-0); REACTIVE LYMPHOCYTES #M 0.1 10^3/ul (0.0-0.0); REACTIVE LYMPHOCYTES% (M) 1 % (0-0); SEG NEUT #M 9.5 10^3/ul (1.6-7.5); SEGMENTED NEUTROPHILS (M) % 66 % (39-77)
[2017-11-11] MEDS: LORAZEPAM 2 MG INJ IM (11:42)
[2017-11-11] MEDS: BISACODYL 10 MG SUPP PR (14:56)
[2017-11-11 15:36] LABS: PROCALCITONIN <0.10 ng/mL (<0.10)
[2017-11-11] MEDS: ACETAMINOPHEN 325 MG TAB PO (20:11)
[2017-11-11] MEDS: LUBIPROSTONE 24 MCG CAP PO (21:27)
[2017-11-12] MEDS: LACTATED RINGER'S 1,000 ML IV ×3 (00:25→20:08)
[2017-11-12] MEDS: ONDANSETRON 4 MG INJ IV ×4 (00:25→19:59)
[2017-11-12] MEDS: HYDROmorphONE 1 MG/ML SYG IV ×3 (02:13→12:30)
[2017-11-12] MEDS: LORAZEPAM 2 MG INJ IV ×2 (03:41→20:08)
[2017-11-12] MEDS: PANTOPRAZOLE 40 MG INJ IV ×2 (05:40→17:52)
[2017-11-12] MEDS: MEROPENEM 1 GM/50ML(PMX) 50 ML IVPB ×3 (05:40→22:54)
[2017-11-12] MEDS: ACETAMINOPHEN 325 MG TAB PO (07:48)
[2017-11-12 08:00] LABS: ABNORMAL IP MESSAGE 1; HEMATOCRIT 29.3 % (37.0-47.0); HEMOGLOBIN 9.7 g/dl (12.0-16.0); MEAN CORPUSCULAR HGB CONC 33.1 g/dl (32.0-37.0); MEAN CORPUSCULAR VOLUME 87.7 fl (82.0-101.0); MEAN PLATELET VOLUME 10.8 fl (7.4-10.4); PLATELET COUNT 338 10^3/UL (140-415); RED BLOOD COUNT 3.34 10^6/ul (4.20-5.40); RED CELL DISTRIBUTION WIDTH 14.6 % (11.5-14.5)
[2017-11-12 08:00] LABS: WHITE BLOOD COUNT 14.8 10^3/ul (4.8-10.8)
[2017-11-12 08:19] LABS: POSITIVE DIFF @See below
[2017-11-12 08:20] LABS: ADD MAN DIFF? YES
[2017-11-12 08:20] LABS: LIPASE 285 U/L (23-300)
[2017-11-12 08:26] LABS: AMYLASE 82 U/L (11-123); ANION GAP 14 (8-16); BLOOD UREA NITROGEN 22 mg/dl (7-20); CALCIUM 7.9 mg/dl (8.4-10.2); CARBON DIOXIDE 24 mmol/L (21-31); CHLORIDE 107 mmol/L (97-110); CREATININE 0.82 mg/dl (0.44-1.00); GLUCOSE 80 mg/dl (70-220); MAGNESIUM 2.5 mg/dl (1.7-2.5); POTASSIUM 3.6 mmol/L (3.5-5.1); SODIUM 141 mmol/L (135-144)
[2017-11-12] MEDS: ALBUTEROL/IPRATROPIUM (NEB) 3 ML AMP HHN ×3 (08:45→19:26)
[2017-11-12] MEDS: LUBIPROSTONE 24 MCG CAP PO ×2 (09:05→20:08)
[2017-11-12 09:54] LABS: BAND NEUTROPHILS #M 6.9 10^3/ul (0.0-0.6); BAND NEUTROPHILS % (M) 47 % (0-4); EOSINOPHILS % (M) 1 % (0-7); LYMPHOCYTES #M 0.4 10^3/ul (0.8-2.9); LYMPHOCYTES % (M) 3 % (15-51); METAMYELOCYTES #M 0.2 10^3/ul (0.0-0.0); METAMYELOCYTES %M 2 % (0-0); MONOCYTE #M 0.2 10^3/ul (0.3-0.9); MONOCYTES % (M) 2 % (0-11); MYELOCYTES #M 0.2 10^3/ul (0.0-0.0); MYELOCYTES % (M) 2 % (0-0); PLATELET ESTIMATE NORMAL; POIKILOCYTOSIS 1+ (0-0); REACTIVE LYMPHOCYTES #M 0.2 10^3/ul (0.0-0.0); REACTIVE LYMPHOCYTES% (M) 2 % (0-0); SEG NEUT #M 7.2 10^3/ul (1.6-7.5); SEGMENTED NEUTROPHILS (M) % 42 % (39-77); SMUDGE%M 17 % (0-0)
[2017-11-12] MEDS ORDERED: HYDROmorphONE 2 MG/ML SYG IV (13:30)
[2017-11-12] MEDS: HYDROmorphONE 2 MG/ML SYG IV ×2 (15:59→19:59)
[2017-11-12] MEDS: LIDOCAINE 1% (MPF) 5 ML VIAL SC (17:00)
[2017-11-12] MEDS: SOD CHLORIDE 0.9% 100 ML (17:15)
[2017-11-13] MEDS: ONDANSETRON 4 MG INJ IV ×3 (03:25→18:22)
[2017-11-13] MEDS: HYDROmorphONE 2 MG/ML SYG IV (03:25)
[2017-11-13] MEDS: KETOROLAC 15 MG INJ IV ×2 (05:46→12:29)
[2017-11-13] MEDS: PANTOPRAZOLE 40 MG INJ IV ×2 (05:52→17:10)
[2017-11-13] MEDS: MEROPENEM 1 GM/50ML(PMX) 50 ML IVPB ×3 (05:53→21:58)
[2017-11-13] MEDS: LACTATED RINGER'S 1,000 ML IV (06:33)
[2017-11-13] MEDS: ALBUTEROL/IPRATROPIUM (NEB) 3 ML AMP HHN ×3 (08:19→21:09)
[2017-11-13] MEDS: LUBIPROSTONE 24 MCG CAP PO ×2 (08:33→21:57)
[2017-11-13 09:05] LABS: WHITE BLOOD COUNT 19.5 10^3/ul (4.8-10.8)
[2017-11-13 09:05] LABS: ABNORMAL IP MESSAGE 1; HEMATOCRIT 27.9 % (37.0-47.0); HEMOGLOBIN 9.2 g/dl (12.0-16.0); MEAN CORPUSCULAR HEMOGLOBIN 28.9 pg (29.0-33.0); MEAN CORPUSCULAR VOLUME 87.7 fl (82.0-101.0); MEAN PLATELET VOLUME 11.4 fl (7.4-10.4); PLATELET COUNT 311 10^3/UL (140-415); RED BLOOD COUNT 3.18 10^6/ul (4.20-5.40); RED CELL DISTRIBUTION WIDTH 14.9 % (11.5-14.5)
[2017-11-13 09:09] LABS: ADD MAN DIFF? YES; POSITIVE DIFF @See below
[2017-11-13 09:14] LABS: ALANINE AMINOTRANSFERASE 36 IU/L (13-69); ALBUMIN 2.8 g/dl (3.3-4.9); ALBUMIN/GLOBULIN RATIO 0.93; ALKALINE PHOSPHATASE 82 IU/L (42-121); ANION GAP 13 (8-16); ASPARTATE AMINO TRANSFERASE 58 IU/L (15-46); BILIRUBIN,INDIRECT 0.3 mg/dl (0-1.1); BILIRUBIN,TOTAL 0.3 mg/dl (0.2-1.3); BLOOD UREA NITROGEN 21 mg/dl (7-20); CALCIUM 8.4 mg/dl (8.4-10.2); CARBON DIOXIDE 23 mmol/L (21-31); CHLORIDE 108 mmol/L (97-110); CREATININE 0.78 mg/dl (0.44-1.00); GLUCOSE 94 mg/dl (70-220); MAGNESIUM 2.2 mg/dl (1.7-2.5); PHOSPHORUS 2.5 mg/dl (2.5-4.9); POTASSIUM 3.4 mmol/L (3.5-5.1); SODIUM 141 mmol/L (135-144); TOTAL PROTEIN 5.8 g/dl (6.1-8.1)
[2017-11-13 09:56] LABS: BAND NEUTROPHILS % (M) 36 % (0-4); BASOPHIL #M 0.1 10^3/ul (0.0-0.0); BASOPHILS % (M) 1 % (0-2); LYMPHOCYTES #M 0.9 10^3/ul (0.8-2.9); LYMPHOCYTES % (M) 5 % (15-51); METAMYELOCYTES #M 0.3 10^3/ul (0.0-0.0); METAMYELOCYTES %M 2 % (0-0); MONOCYTE #M 1.1 10^3/ul (0.3-0.9); MONOCYTES % (M) 6 % (0-11); MYELOCYTES #M 0.3 10^3/ul (0.0-0.0); MYELOCYTES % (M) 2 % (0-0); PLATELET ESTIMATE NORMAL; POLYCHROMASIA 1+ (0-0); SEG NEUT #M 10.7 10^3/ul (1.6-7.5); SEGMENTED NEUTROPHILS (M) % 48 % (39-77); SMUDGE%M 5 % (0-0)
[2017-11-13] MEDS ORDERED: FAT EMULSION 20% 500 ML IV (14:00)
[2017-11-13] MEDS: METOPROLOL 5 MG INJ IV (16:23)
[2017-11-13] MEDS ORDERED: LACTATED RINGER'S 1,000 ML IV (17:00)
[2017-11-13] MEDS: FAT EMULSION 20% 500 ML IV (17:10)
[2017-11-13] MEDS: TPN 1,000 ML IV (17:34)
[2017-11-13] MEDS: HYDROmorphONE 0.5 MG/0.5 ML SYG IV ×2 (18:15→20:59)
[2017-11-13] MEDS ORDERED: VITAMIN A & D 5 GM OINT PACKET TOP (19:25)
[2017-11-13] MEDS: hydrALAzine 20 MG INJ IV (21:57)
[2017-11-14] MEDS: HYDROmorphONE 0.5 MG/0.5 ML SYG IV ×7 (01:53→23:54)
[2017-11-14] MEDS: ONDANSETRON 4 MG INJ IV ×2 (02:00→06:24)
[2017-11-14] MEDS: MAGNESIUM HYDROXIDE 30ML CUP PO (02:15)
[2017-11-14] MEDS: PANTOPRAZOLE 40 MG INJ IV ×2 (06:17→17:47)
[2017-11-14] MEDS: MEROPENEM 1 GM/50ML(PMX) 50 ML IVPB ×3 (06:19→21:28)
[2017-11-14] MEDS: TPN 1,000 ML IV ×2 (06:19→17:47)
[2017-11-14 08:45] LABS: ADD MAN DIFF? NO
[2017-11-14] MEDS: ALBUTEROL/IPRATROPIUM (NEB) 3 ML AMP HHN ×3 (08:46→20:32)
[2017-11-14 08:56] LABS: WHITE BLOOD COUNT 21.3 10^3/ul (4.8-10.8)
[2017-11-14 08:56] LABS: ABNORMAL IP MESSAGE 1; BASOPHIL # 0.1 10^3/ul (0.0-0.1); BASOPHILS % 0.4 % (0.0-2.0); EOSINOPHILS # 0.2 10^3/ul (0.0-0.5); HEMATOCRIT 26.3 % (37.0-47.0); HEMOGLOBIN 8.9 g/dl (12.0-16.0); LYMPHOCYTES # 0.9 10^3/ul (0.8-2.9); LYMPHOCYTES % 4.4 % (15.0-51.0); MEAN CORPUSCULAR HEMOGLOBIN 29.4 pg (29.0-33.0); MEAN CORPUSCULAR HGB CONC 33.8 g/dl (32.0-37.0); MEAN CORPUSCULAR VOLUME 86.8 fl (82.0-101.0); MEAN PLATELET VOLUME 10.9 fl (7.4-10.4); MONOCYTE # 1.1 10^3/ul (0.3-0.9); MONOCYTES % 5.3 % (0.0-11.0); NEUTROPHIL # 16.5 10^3/ul (1.6-7.5); NEUTROPHILS % 77.3 % (39.0-77.0); PLATELET COUNT 358 10^3/UL (140-415); RED BLOOD COUNT 3.03 10^6/ul (4.20-5.40)
[2017-11-14] MEDS: LUBIPROSTONE 24 MCG CAP PO (08:56)
[2017-11-14 08:59] LABS: POSITIVE DIFF @See below
[2017-11-14 09:15] LABS: MAGNESIUM 2.2 mg/dl (1.7-2.5)
[2017-11-14 09:16] LABS: ANION GAP 8 (8-16); BLOOD UREA NITROGEN 25 mg/dl (7-20); CALCIUM 8.2 mg/dl (8.4-10.2); CARBON DIOXIDE 29 mmol/L (21-31); CHLORIDE 106 mmol/L (97-110); CREATININE 0.65 mg/dl (0.44-1.00); GLUCOSE 258 mg/dl (70-220); POTASSIUM 3.3 mmol/L (3.5-5.1); SODIUM 140 mmol/L (135-144)
[2017-11-14 09:43] LABS: BAND NEUTROPHILS #M 7.8 10^3/ul (0.0-0.6); BAND NEUTROPHILS % (M) 37 % (0-4); EOSINOPHILS % (M) 1 % (0-7); LYMPHOCYTES #M 0.6 10^3/ul (0.8-2.9); LYMPHOCYTES % (M) 3 % (15-51); METAMYELOCYTES #M 0.2 10^3/ul (0.0-0.0); METAMYELOCYTES %M 1 % (0-0); MONOCYTE #M 1.7 10^3/ul (0.3-0.9); MONOCYTES % (M) 8 % (0-11); MYELOCYTES #M 0.4 10^3/ul (0.0-0.0); MYELOCYTES % (M) 2 % (0-0); PLATELET ESTIMATE NORMAL; POLYCHROMASIA 2+ (0-0); SEG NEUT #M 11.9 10^3/ul (1.6-7.5); SEGMENTED NEUTROPHILS (M) % 48 % (39-77); SMUDGE%M 11 % (0-0)
[2017-11-14] MEDS: POTASSIUM PHOSPHATE 15 MM in SOD CHLORIDE 0.9% 250 ML IVPB ×2 (12:21→16:27)
[2017-11-14] MEDS: LORAZEPAM 2 MG INJ IV (14:27)
[2017-11-14] MEDS: FUROSEMIDE 40 MG INJ IV (16:56)
[2017-11-14] MEDS: FAT EMULSION 20% 500 ML IV (17:47)
[2017-11-14] MEDS: METOPROLOL 5 MG INJ IV (20:28)
[2017-11-15] MEDS: PANTOPRAZOLE 40 MG INJ IV ×2 (05:35→17:06)
[2017-11-15] MEDS: MEROPENEM 1 GM/50ML(PMX) 50 ML IVPB ×3 (05:35→21:37)
[2017-11-15] MEDS: TPN 1,000 ML IV ×2 (05:35→20:44)
[2017-11-15] MEDS: ONDANSETRON 4 MG INJ IV ×3 (05:52→15:38)
[2017-11-15 06:14] LABS: ABNORMAL IP MESSAGE 1; HEMATOCRIT 26.2 % (37.0-47.0); HEMOGLOBIN 8.8 g/dl (12.0-16.0); MEAN CORPUSCULAR HEMOGLOBIN 29.1 pg (29.0-33.0); MEAN CORPUSCULAR HGB CONC 33.6 g/dl (32.0-37.0); MEAN CORPUSCULAR VOLUME 86.8 fl (82.0-101.0); MEAN PLATELET VOLUME 10.6 fl (7.4-10.4); PLATELET COUNT 346 10^3/UL (140-415); RED BLOOD COUNT 3.02 10^6/ul (4.20-5.40); RED CELL DISTRIBUTION WIDTH 15.1 % (11.5-14.5)
[2017-11-15 06:14] LABS: WHITE BLOOD COUNT 22.5 10^3/ul (4.8-10.8)
[2017-11-15 06:27] LABS: ADD MAN DIFF? YES; POSITIVE DIFF @See below
[2017-11-15 06:34] LABS: LACTIC ACID 1.5 mmol/L (0.5-2.0)
[2017-11-15 06:40] LABS: INR 1.09; PARTIAL THROMBOPLASTIN TIME 31.6 Sec (25.0-35.0); PROTIME 14.2 Sec (11.9-14.9); PT RATIO 1.1
[2017-11-15 06:58] LABS: B-TYPE NATRIURETIC PEPTIDE 816 PG/ML (0-125)
[2017-11-15 07:05] LABS: LIPASE 418 U/L (23-300)
[2017-11-15] MEDS: ALBUTEROL/IPRATROPIUM (NEB) 3 ML AMP HHN ×4 (07:38→19:37)
[2017-11-15] MEDS: KETOROLAC 15 MG INJ IV (08:07)
[2017-11-15 08:08] LABS: ALANINE AMINOTRANSFERASE 58 IU/L (13-69); ALBUMIN 2.5 g/dl (3.3-4.9); ALBUMIN/GLOBULIN RATIO 0.86; ALKALINE PHOSPHATASE 119 IU/L (42-121); ANION GAP 8 (8-16); ASPARTATE AMINO TRANSFERASE 75 IU/L (15-46); BLOOD UREA NITROGEN 23 mg/dl (7-20); CALCIUM 8.2 mg/dl (8.4-10.2); CARBON DIOXIDE 30 mmol/L (21-31); CHLORIDE 102 mmol/L (97-110); CREATININE 0.61 mg/dl (0.44-1.00); GLUCOSE 222 mg/dl (70-220); MAGNESIUM 1.9 mg/dl (1.7-2.5); POTASSIUM 3.2 mmol/L (3.5-5.1); SODIUM 137 mmol/L (135-144); TOTAL PROTEIN 5.4 g/dl (6.1-8.1)
[2017-11-15 08:52] LABS: BAND NEUTROPHILS #M 4.9 10^3/ul (0.0-0.6); BAND NEUTROPHILS % (M) 22 % (0-4); GIANT THROMBO% (M) 3 % (0-0); LYMPHOCYTES % (M) 9 % (15-51); MONOCYTE #M 1.5 10^3/ul (0.3-0.9); MONOCYTES % (M) 7 % (0-11); MYELOCYTES #M 1.1 10^3/ul (0.0-0.0); MYELOCYTES % (M) 5 % (0-0); PLATELET ESTIMATE NORMAL; POLYCHROMASIA 1+ (0-0); SEG NEUT #M 13.9 10^3/ul (1.6-7.5); SEGMENTED NEUTROPHILS (M) % 57 % (39-77); SMUDGE%M 7 % (0-0)
[2017-11-15] MEDS: FUROSEMIDE 40 MG INJ IV (10:03)
[2017-11-15] MEDS: HYDROmorphONE 0.5 MG/0.5 ML SYG IV ×4 (11:23→23:00)
[2017-11-15] MEDS: MAGNESIUM HYDROXIDE 30ML CUP PO (15:04)
[2017-11-15] MEDS: FAT EMULSION 20% 250 ML IV (17:06)
[2017-11-15] MEDS: INSULIN ASPART [NOVOLOG] 3 ML PEN SC ×2 (17:25→18:00)
[2017-11-15] MEDS ORDERED: DOCUSATE SODIUM 100 MG CAP PO (17:30)
[2017-11-15] MEDS ORDERED: BISACODYL 10 MG SUPP PR (17:30)
[2017-11-15] MEDS ORDERED: NA PHOSPHATE/BIPHOS 133 ML ENEMA PR (17:30)
[2017-11-15] MEDS: POTASSIUM CHLORIDE 20 MEQ POWDER FOR ORAL SOLN PO (21:36)
[2017-11-16] MEDS: INSULIN ASPART [NOVOLOG] 3 ML PEN SC ×5 (00:25→21:00)
[2017-11-16] MEDS: LORAZEPAM 2 MG INJ IV (00:27)
[2017-11-16] MEDS ORDERED: GLUCAGON 1 MG INJ IM (03:30)
[2017-11-16] MEDS ORDERED: GLUCOSE GEL 15 GRAM TUBE PO ×2 (03:30)
[2017-11-16] MEDS ORDERED: DEXTROSE 50% 50 ML SYRINGE IV ×2 (03:30)
[2017-11-16] MEDS ORDERED: GLUCOSE GEL 15 GRAM TUBE BUCCAL (03:30)
[2017-11-16] MEDS: HYDROmorphONE 0.5 MG/0.5 ML SYG IV ×6 (03:52→21:40)
[2017-11-16] MEDS: PANTOPRAZOLE 40 MG INJ IV ×2 (06:17→18:06)
[2017-11-16] MEDS: MEROPENEM 1 GM/50ML(PMX) 50 ML IVPB (06:17)
[2017-11-16 06:51] LABS: ABNORMAL IP MESSAGE 1; HEMATOCRIT 24.3 % (37.0-47.0); HEMOGLOBIN 8.4 g/dl (12.0-16.0); MEAN CORPUSCULAR HEMOGLOBIN 30.1 pg (29.0-33.0); MEAN CORPUSCULAR HGB CONC 34.6 g/dl (32.0-37.0); MEAN CORPUSCULAR VOLUME 87.1 fl (82.0-101.0); MEAN PLATELET VOLUME 11.3 fl (7.4-10.4); PLATELET COUNT 315 10^3/UL (140-415); RED BLOOD COUNT 2.79 10^6/ul (4.20-5.40); RED CELL DISTRIBUTION WIDTH 14.8 % (11.5-14.5)
[2017-11-16 06:55] LABS: LACTIC ACID 1.5 mmol/L (0.5-2.0)
[2017-11-16 06:59] LABS: INR 1.04; PROTIME 13.7 Sec (11.9-14.9); PT RATIO 1.1
[2017-11-16 07:10] LABS: PARTIAL THROMBOPLASTIN TIME 31.4 Sec (25.0-35.0); POSITIVE DIFF @See below
[2017-11-16 07:11] LABS: ADD MAN DIFF? YES; ALANINE AMINOTRANSFERASE 97 IU/L (13-69); ALBUMIN 2.2 g/dl (3.3-4.9); ALBUMIN/GLOBULIN RATIO 0.88; ALKALINE PHOSPHATASE 130 IU/L (42-121); ANION GAP 10 (8-16); ASPARTATE AMINO TRANSFERASE 105 IU/L (15-46); BLOOD UREA NITROGEN 23 mg/dl (7-20); CALCIUM 7.9 mg/dl (8.4-10.2); CARBON DIOXIDE 32 mmol/L (21-31); CHLORIDE 100 mmol/L (97-110); CREATININE 0.57 mg/dl (0.44-1.00); GLUCOSE 275 mg/dl (70-220); POTASSIUM 4.3 mmol/L (3.5-5.1); SODIUM 138 mmol/L (135-144); TOTAL PROTEIN 4.7 g/dl (6.1-8.1)
[2017-11-16 07:20] LABS: PREALBUMIN 6.6 mg/dl (17.6-36.0)
[2017-11-16 07:20] LABS: TRIGLYCERIDES 370 mg/dl (0-149)
[2017-11-16] MEDS: ALBUTEROL/IPRATROPIUM (NEB) 3 ML AMP HHN ×3 (07:32→20:00)
[2017-11-16 07:57] LABS: LIPASE 456 U/L (23-300)
[2017-11-16 08:03] LABS: B-TYPE NATRIURETIC PEPTIDE 456 PG/ML (0-125)
[2017-11-16] MEDS: TPN 1,000 ML IV ×3 (08:51→20:00)
[2017-11-16 09:27] LABS: PHOSPHORUS 2.7 mg/dl (2.5-4.9)
[2017-11-16 09:27] LABS: MAGNESIUM 2.1 mg/dl (1.7-2.5)
[2017-11-16 09:32] LABS: ANISOCYTOSIS 1+ (0-0); BAND NEUTROPHILS % (M) 10 % (0-4); EOSINOPHILS % (M) 2 % (0-7); LYMPHOCYTES % (M) 5 % (15-51); METAMYELOCYTES #M 0.2 10^3/ul (0.0-0.0); METAMYELOCYTES %M 1 % (0-0); MICROCYTOSIS 1+ (0-0); MONOCYTE #M 0.2 10^3/ul (0.3-0.9); MONOCYTES % (M) 1 % (0-11); MYELOCYTES #M 0.2 10^3/ul (0.0-0.0); MYELOCYTES % (M) 1 % (0-0); PLATELET ESTIMATE NORMAL; POLYCHROMASIA 2+ (0-0); SEG NEUT #M 16.4 10^3/ul (1.6-7.5); SEGMENTED NEUTROPHILS (M) % 80 % (39-77); SMUDGE%M 13 % (0-0)
[2017-11-17] MEDS: HYDROmorphONE 0.5 MG/0.5 ML SYG IV ×8 (00:20→23:49)
[2017-11-17] MEDS: hydrALAzine 20 MG INJ IV ×2 (02:01→08:38)
[2017-11-17] MEDS: ONDANSETRON 4 MG INJ IV ×3 (03:20→21:09)
[2017-11-17] MEDS: LORAZEPAM 2 MG INJ IV (03:20)
[2017-11-17] MEDS: PANTOPRAZOLE 40 MG INJ IV ×2 (06:26→17:40)
[2017-11-17 07:15] LABS: ABNORMAL IP MESSAGE 1; HEMATOCRIT 25.2 % (37.0-47.0); HEMOGLOBIN 7.8 g/dl (12.0-16.0); MEAN CORPUSCULAR HEMOGLOBIN 28.7 pg (29.0-33.0); MEAN CORPUSCULAR VOLUME 92.6 fl (82.0-101.0); MEAN PLATELET VOLUME 11.2 fl (7.4-10.4); PLATELET COUNT 293 10^3/UL (140-415); RED BLOOD COUNT 2.72 10^6/ul (4.20-5.40)
[2017-11-17 07:15] LABS: WHITE BLOOD COUNT 17.4 10^3/ul (4.8-10.8)
[2017-11-17 07:21] LABS: ADD MAN DIFF? YES; POSITIVE DIFF @See below
[2017-11-17 07:43] LABS: INR 1.09; PROTIME 14.3 Sec (11.9-14.9); PT RATIO 1.1
[2017-11-17 07:44] LABS: PARTIAL THROMBOPLASTIN TIME 33.7 Sec (25.0-35.0)
[2017-11-17 07:49] LABS: LACTIC ACID 1.1 mmol/L (0.5-2.0)
[2017-11-17] MEDS: INSULIN ASPART [NOVOLOG] 3 ML PEN SC ×4 (08:12→21:30)
[2017-11-17 08:23] LABS: LIPASE 476 U/L (23-300)
[2017-11-17 08:31] LABS: B-TYPE NATRIURETIC PEPTIDE 344 PG/ML (0-125)
[2017-11-17] MEDS: ALBUTEROL/IPRATROPIUM (NEB) 3 ML AMP HHN ×3 (09:27→20:00)
[2017-11-17 09:47] LABS: ANISOCYTOSIS 1+ (0-0); BAND NEUTROPHILS #M 0.3 10^3/ul (0.0-0.6); BAND NEUTROPHILS % (M) 2 % (0-4); BASOPHIL #M 0.1 10^3/ul (0.0-0.0); BASOPHILS % (M) 1 % (0-2); EOSINOPHILS % (M) 2 % (0-7); LYMPHOCYTES #M 0.5 10^3/ul (0.8-2.9); LYMPHOCYTES % (M) 3 % (15-51); MICROCYTOSIS 1+ (0-0); MONOCYTES % (M) 6 % (0-11); PLATELET ESTIMATE NORMAL; PLATELET MORPHOLOGY COMMENT @See below; POLYCHROMASIA 3+ (0-0); SEGMENTED NEUTROPHILS (M) % 86 % (39-77); SMUDGE%M 5 % (0-0)
[2017-11-17 09:55] LABS: ALANINE AMINOTRANSFERASE 92 IU/L (13-69); ALBUMIN 2.6 g/dl (3.3-4.9); ALBUMIN/GLOBULIN RATIO 0.86; ALKALINE PHOSPHATASE 144 IU/L (42-121); ANION GAP 10 (8-16); ASPARTATE AMINO TRANSFERASE 71 IU/L (15-46); BILIRUBIN,INDIRECT 0.1 mg/dl (0-1.1); BILIRUBIN,TOTAL 0.1 mg/dl (0.2-1.3); BLOOD UREA NITROGEN 23 mg/dl (7-20); CALCIUM 8.6 mg/dl (8.4-10.2); CARBON DIOXIDE 31 mmol/L (21-31); CHLORIDE 101 mmol/L (97-110); CREATININE 0.65 mg/dl (0.44-1.00); GLUCOSE 177 mg/dl (70-220); PHOSPHORUS 3.3 mg/dl (2.5-4.9); POTASSIUM 4.2 mmol/L (3.5-5.1); SODIUM 138 mmol/L (135-144); TOTAL PROTEIN 5.6 g/dl (6.1-8.1)
[2017-11-17] MEDS: TPN 1,000 ML IV ×2 (10:12→21:09)
[2017-11-18] MEDS: LORAZEPAM 2 MG INJ IV ×2 (01:55→16:20)
[2017-11-18] MEDS: HYDROmorphONE 0.5 MG/0.5 ML SYG IV ×5 (03:50→22:41)
[2017-11-18] MEDS: PANTOPRAZOLE 40 MG INJ IV ×2 (06:14→18:12)
[2017-11-18 06:21] LABS: ADD MAN DIFF? NO
[2017-11-18 06:25] LABS: BASOPHIL # 0.1 10^3/ul (0.0-0.1); BASOPHILS % 0.3 % (0.0-2.0); EOSINOPHILS # 0.2 10^3/ul (0.0-0.5); EOSINOPHILS % 1.3 % (0.0-7.0); HEMATOCRIT 24.9 % (37.0-47.0); HEMOGLOBIN 8.2 g/dl (12.0-16.0); LYMPHOCYTES % 5.8 % (15.0-51.0); MEAN CORPUSCULAR HEMOGLOBIN 28.9 pg (29.0-33.0); MEAN CORPUSCULAR HGB CONC 32.9 g/dl (32.0-37.0); MEAN CORPUSCULAR VOLUME 87.7 fl (82.0-101.0); MEAN PLATELET VOLUME 11.4 fl (7.4-10.4); MONOCYTE # 1.1 10^3/ul (0.3-0.9); MONOCYTES % 6.4 % (0.0-11.0); NEUTROPHIL # 13.5 10^3/ul (1.6-7.5); NEUTROPHILS % 81.2 % (39.0-77.0); PLATELET COUNT 349 10^3/UL (140-415); RED BLOOD COUNT 2.84 10^6/ul (4.20-5.40); RED CELL DISTRIBUTION WIDTH 14.4 % (11.5-14.5)
[2017-11-18 06:25] LABS: WHITE BLOOD COUNT 16.6 10^3/ul (4.8-10.8)
[2017-11-18 07:26] LABS: ALANINE AMINOTRANSFERASE 97 IU/L (13-69); ALBUMIN 2.4 g/dl (3.3-4.9); ALBUMIN/GLOBULIN RATIO 0.96; ALKALINE PHOSPHATASE 138 IU/L (42-121); ANION GAP 13 (8-16); ASPARTATE AMINO TRANSFERASE 76 IU/L (15-46); BILIRUBIN,INDIRECT 0.1 mg/dl (0-1.1); BILIRUBIN,TOTAL 0.1 mg/dl (0.2-1.3); BLOOD UREA NITROGEN 25 mg/dl (7-20); CALCIUM 8.4 mg/dl (8.4-10.2); CARBON DIOXIDE 30 mmol/L (21-31); CHLORIDE 100 mmol/L (97-110); CREATININE 0.64 mg/dl (0.44-1.00); GLUCOSE 236 mg/dl (70-220); POTASSIUM 4.8 mmol/L (3.5-5.1); SODIUM 138 mmol/L (135-144); TOTAL PROTEIN 4.9 g/dl (6.1-8.1)
[2017-11-18 07:31] LABS: PHOSPHORUS 4.6 mg/dl (2.5-4.9)
[2017-11-18] MEDS: INSULIN ASPART [NOVOLOG] 3 ML PEN SC ×4 (07:55→22:18)
[2017-11-18] MEDS: ALBUTEROL/IPRATROPIUM (NEB) 3 ML AMP HHN ×3 (08:00→19:45)
[2017-11-18] MEDS: TPN 1,000 ML IV (10:00)
[2017-11-18] MEDS: ONDANSETRON 4 MG INJ IV (12:32)
[2017-11-19] MEDS: hydrALAzine 20 MG INJ IV (00:11)
[2017-11-19] MEDS: HYDROmorphONE 0.5 MG/0.5 ML SYG IV ×5 (00:37→18:41)
[2017-11-19] MEDS: PANTOPRAZOLE 40 MG INJ IV ×2 (01:00→17:27)
[2017-11-19] MEDS: ONDANSETRON 4 MG INJ IV ×3 (04:25→18:42)
[2017-11-19 06:09] LABS: ADD MAN DIFF? NO
[2017-11-19 06:21] LABS: WHITE BLOOD COUNT 16.5 10^3/ul (4.8-10.8)
[2017-11-19 06:21] LABS: BASOPHIL # 0.1 10^3/ul (0.0-0.1); BASOPHILS % 0.3 % (0.0-2.0); EOSINOPHILS # 0.2 10^3/ul (0.0-0.5); EOSINOPHILS % 1.5 % (0.0-7.0); HEMATOCRIT 24.4 % (37.0-47.0); HEMOGLOBIN 8.2 g/dl (12.0-16.0); LYMPHOCYTES # 1.3 10^3/ul (0.8-2.9); LYMPHOCYTES % 7.7 % (15.0-51.0); MEAN CORPUSCULAR HEMOGLOBIN 29.1 pg (29.0-33.0); MEAN CORPUSCULAR HGB CONC 33.6 g/dl (32.0-37.0); MEAN CORPUSCULAR VOLUME 86.5 fl (82.0-101.0); MEAN PLATELET VOLUME 11.2 fl (7.4-10.4); MONOCYTE # 1.2 10^3/ul (0.3-0.9); MONOCYTES % 7.3 % (0.0-11.0); NEUTROPHILS % 78.9 % (39.0-77.0); PLATELET COUNT 444 10^3/UL (140-415); RED BLOOD COUNT 2.82 10^6/ul (4.20-5.40); RED CELL DISTRIBUTION WIDTH 14.4 % (11.5-14.5)
[2017-11-19 06:29] LABS: PHOSPHORUS 5.6 mg/dl (2.5-4.9)
[2017-11-19 06:31] LABS: ALANINE AMINOTRANSFERASE 121 IU/L (13-69); ALBUMIN 2.9 g/dl (3.3-4.9); ALKALINE PHOSPHATASE 172 IU/L (42-121); ANION GAP 12 (8-16); ASPARTATE AMINO TRANSFERASE 100 IU/L (15-46); BILIRUBIN,INDIRECT 0.1 mg/dl (0-1.1); BILIRUBIN,TOTAL 0.1 mg/dl (0.2-1.3); BLOOD UREA NITROGEN 25 mg/dl (7-20); CALCIUM 8.6 mg/dl (8.4-10.2); CARBON DIOXIDE 29 mmol/L (21-31); CHLORIDE 104 mmol/L (97-110); CREATININE 0.73 mg/dl (0.44-1.00); GLUCOSE 126 mg/dl (70-220); POTASSIUM 4.3 mmol/L (3.5-5.1); SODIUM 141 mmol/L (135-144); TOTAL PROTEIN 6.1 g/dl (6.1-8.1)
[2017-11-19] MEDS: ALBUTEROL/IPRATROPIUM (NEB) 3 ML AMP HHN ×3 (08:30→20:00)
[2017-11-19] MEDS: ACETAMINOPHEN 325 MG TAB PO (09:21)
[2017-11-19 10:04] LABS: AMYLASE 42 U/L (11-123)
[2017-11-19 10:04] LABS: LIPASE 422 U/L (23-300)
[2017-11-19] MEDS: INSULIN ASPART [NOVOLOG] 3 ML PEN SC ×4 (10:35→21:00)
[2017-11-19] MEDS: LORAZEPAM 2 MG INJ IV (21:56)
[2017-11-20] MEDS: HYDROmorphONE 0.5 MG/0.5 ML SYG IV ×2 (00:46→05:31)
[2017-11-20] MEDS: ONDANSETRON 4 MG INJ IV ×3 (00:53→17:54)
[2017-11-20] MEDS: ACETAMINOPHEN 325 MG TAB PO ×2 (03:56→17:49)
[2017-11-20] MEDS: PANTOPRAZOLE 40 MG INJ IV (05:17)
[2017-11-20] MEDS: INSULIN ASPART [NOVOLOG] 3 ML PEN SC ×2 (07:25→11:20)
[2017-11-20 07:31] LABS: ADD MAN DIFF? NO
[2017-11-20 07:36] LABS: BASOPHIL # 0.1 10^3/ul (0.0-0.1); BASOPHILS % 0.4 % (0.0-2.0); EOSINOPHILS # 0.2 10^3/ul (0.0-0.5); EOSINOPHILS % 1.4 % (0.0-7.0); HEMATOCRIT 23.3 % (37.0-47.0); HEMOGLOBIN 7.6 g/dl (12.0-16.0); LYMPHOCYTES # 1.2 10^3/ul (0.8-2.9); LYMPHOCYTES % 8.4 % (15.0-51.0); MEAN CORPUSCULAR HEMOGLOBIN 28.7 pg (29.0-33.0); MEAN CORPUSCULAR HGB CONC 32.6 g/dl (32.0-37.0); MEAN CORPUSCULAR VOLUME 87.9 fl (82.0-101.0); MEAN PLATELET VOLUME 11.7 fl (7.4-10.4); MONOCYTE # 0.9 10^3/ul (0.3-0.9); MONOCYTES % 6.3 % (0.0-11.0); NEUTROPHIL # 11.4 10^3/ul (1.6-7.5); NUCLEATED RED BLOOD CELLS # 0.1 10^3/ul (0.0-0.0); NUCLEATED RED BLOOD CELLS% 0.4 /100WBC (0.0-0.0); PLATELET COUNT 457 10^3/UL (140-415); RED BLOOD COUNT 2.65 10^6/ul (4.20-5.40); RED CELL DISTRIBUTION WIDTH 14.6 % (11.5-14.5)
[2017-11-20 07:36] LABS: WHITE BLOOD COUNT 14.1 10^3/ul (4.8-10.8)
[2017-11-20] MEDS: ALBUTEROL/IPRATROPIUM (NEB) 3 ML AMP HHN ×2 (08:00→20:40)
[2017-11-20 08:01] LABS: ALANINE AMINOTRANSFERASE 123 IU/L (13-69); ALBUMIN 2.9 g/dl (3.3-4.9); ALBUMIN/GLOBULIN RATIO 0.82; ALKALINE PHOSPHATASE 159 IU/L (42-121); ANION GAP 11 (8-16); ASPARTATE AMINO TRANSFERASE 96 IU/L (15-46); BILIRUBIN,INDIRECT 0.2 mg/dl (0-1.1); BILIRUBIN,TOTAL 0.2 mg/dl (0.2-1.3); BLOOD UREA NITROGEN 22 mg/dl (7-20); CALCIUM 8.7 mg/dl (8.4-10.2); CARBON DIOXIDE 28 mmol/L (21-31); CHLORIDE 103 mmol/L (97-110); CREATININE 0.78 mg/dl (0.44-1.00); GLUCOSE 128 mg/dl (70-220); POTASSIUM 4.3 mmol/L (3.5-5.1); SODIUM 138 mmol/L (135-144); TOTAL PROTEIN 6.4 g/dl (6.1-8.1)
[2017-11-20 08:02] LABS: AMYLASE 33 U/L (11-123)
[2017-11-20 08:02] LABS: LIPASE 509 U/L (23-300)
[2017-11-20 08:05] LABS: PHOSPHORUS 6.5 mg/dl (2.5-4.9)
[2017-11-20 14:00] LABS: HEMATOCRIT 25.8 % (37.0-47.0); HEMOGLOBIN 8.6 g/dl (12.0-16.0)
[2017-11-20] MEDS: traMADol 50 MG TAB PO (14:34)
[2017-11-20] MEDS ORDERED: HYDROmorphONE 0.5 MG/0.5 ML SYG IV (17:00)
[2017-11-20] MEDS: PANTOPRAZOLE (EC) 40 MG TAB PO (17:49)
[2017-11-21] MEDS: traMADol 50 MG TAB PO ×2 (00:07→20:31)
[2017-11-21] MEDS: ONDANSETRON 4 MG INJ IV ×2 (02:04→16:08)
[2017-11-21] MEDS: PANTOPRAZOLE (EC) 40 MG TAB PO ×2 (05:09→18:25)
[2017-11-21 05:52] LABS: ADD MAN DIFF? NO
[2017-11-21 06:07] LABS: WHITE BLOOD COUNT 13.6 10^3/ul (4.8-10.8)
[2017-11-21 06:07] LABS: BASOPHIL # 0.1 10^3/ul (0.0-0.1); BASOPHILS % 0.4 % (0.0-2.0); EOSINOPHILS # 0.2 10^3/ul (0.0-0.5); EOSINOPHILS % 1.5 % (0.0-7.0); HEMATOCRIT 23.8 % (37.0-47.0); HEMOGLOBIN 7.8 g/dl (12.0-16.0); LYMPHOCYTES # 1.4 10^3/ul (0.8-2.9); LYMPHOCYTES % 10.5 % (15.0-51.0); MEAN CORPUSCULAR HEMOGLOBIN 28.7 pg (29.0-33.0); MEAN CORPUSCULAR HGB CONC 32.8 g/dl (32.0-37.0); MEAN CORPUSCULAR VOLUME 87.5 fl (82.0-101.0); MEAN PLATELET VOLUME 11.1 fl (7.4-10.4); MONOCYTES % 7.2 % (0.0-11.0); NEUTROPHIL # 10.6 10^3/ul (1.6-7.5); NEUTROPHILS % 78.3 % (39.0-77.0); PLATELET COUNT 601 10^3/UL (140-415); RED BLOOD COUNT 2.72 10^6/ul (4.20-5.40); RED CELL DISTRIBUTION WIDTH 14.2 % (11.5-14.5)
[2017-11-21 06:49] LABS: ALANINE AMINOTRANSFERASE 107 IU/L (13-69); ALBUMIN 3.1 g/dl (3.3-4.9); ALBUMIN/GLOBULIN RATIO 0.86; ALKALINE PHOSPHATASE 171 IU/L (42-121); ANION GAP 10 (8-16); ASPARTATE AMINO TRANSFERASE 72 IU/L (15-46); BILIRUBIN,INDIRECT 0.1 mg/dl (0-1.1); BILIRUBIN,TOTAL 0.1 mg/dl (0.2-1.3); BLOOD UREA NITROGEN 15 mg/dl (7-20); CALCIUM 9.2 mg/dl (8.4-10.2); CARBON DIOXIDE 30 mmol/L (21-31); CHLORIDE 105 mmol/L (97-110); CREATININE 0.88 mg/dl (0.44-1.00); GLUCOSE 125 mg/dl (70-220); POTASSIUM 4.1 mmol/L (3.5-5.1); SODIUM 141 mmol/L (135-144); TOTAL PROTEIN 6.7 g/dl (6.1-8.1)
[2017-11-21] MEDS: ALBUTEROL/IPRATROPIUM (NEB) 3 ML AMP HHN ×3 (08:00→20:00)
[2017-11-21] MEDS: ACETAMINOPHEN 325 MG TAB PO ×2 (09:13→16:08)
[2017-11-21 11:22] LABS: HEMATOCRIT 23.7 % (37.0-47.0)
[2017-11-21] MEDS: ASCORBIC ACID 500 MG TAB PO ×2 (14:22→20:31)
[2017-11-21] MEDS: SOD FERRIC GLUC COMPLX 125 MG in SOD CHLORIDE 0.9% 100 ML IVPB (14:22)
[2017-11-22] MEDS: ACETAMINOPHEN 325 MG TAB PO (00:23)
[2017-11-22 04:50] LABS: ADD MAN DIFF? NO
[2017-11-22 04:57] LABS: BASOPHIL # 0.1 10^3/ul (0.0-0.1); BASOPHILS % 0.6 % (0.0-2.0); EOSINOPHILS # 0.2 10^3/ul (0.0-0.5); EOSINOPHILS % 1.7 % (0.0-7.0); HEMATOCRIT 25.7 % (37.0-47.0); HEMOGLOBIN 8.4 g/dl (12.0-16.0); LYMPHOCYTES % 14.2 % (15.0-51.0); MEAN CORPUSCULAR HEMOGLOBIN 28.5 pg (29.0-33.0); MEAN CORPUSCULAR HGB CONC 32.7 g/dl (32.0-37.0); MEAN CORPUSCULAR VOLUME 87.1 fl (82.0-101.0); MEAN PLATELET VOLUME 10.6 fl (7.4-10.4); MONOCYTES % 6.8 % (0.0-11.0); NEUTROPHIL # 10.7 10^3/ul (1.6-7.5); RED BLOOD COUNT 2.95 10^6/ul (4.20-5.40); RED CELL DISTRIBUTION WIDTH 14.1 % (11.5-14.5)
[2017-11-22 04:57] LABS: WHITE BLOOD COUNT 14.2 10^3/ul (4.8-10.8)
[2017-11-22 05:15] LABS: ALANINE AMINOTRANSFERASE 113 IU/L (13-69); ALBUMIN 3.6 g/dl (3.3-4.9); ALBUMIN/GLOBULIN RATIO 0.97; ALKALINE PHOSPHATASE 169 IU/L (42-121); ANION GAP 16 (8-16); ASPARTATE AMINO TRANSFERASE 73 IU/L (15-46); BILIRUBIN,INDIRECT 0.1 mg/dl (0-1.1); BILIRUBIN,TOTAL 0.1 mg/dl (0.2-1.3); BLOOD UREA NITROGEN 14 mg/dl (7-20); CALCIUM 9.3 mg/dl (8.4-10.2); CARBON DIOXIDE 27 mmol/L (21-31); CHLORIDE 106 mmol/L (97-110); CREATININE 0.94 mg/dl (0.44-1.00); GLUCOSE 125 mg/dl (70-220); POTASSIUM 4.4 mmol/L (3.5-5.1); SODIUM 145 mmol/L (135-144); TOTAL PROTEIN 7.3 g/dl (6.1-8.1)
[2017-11-22 05:16] LABS: MAGNESIUM 2.2 mg/dl (1.7-2.5)
[2017-11-22] MEDS: PANTOPRAZOLE (EC) 40 MG TAB PO (05:47)
[2017-11-22 06:03] LABS: PATH REVIEW? YES
[2017-11-22 06:41] LABS: LIPASE 896 U/L (23-300)
[2017-11-22 06:48] LABS: PLATELET COUNT 738 10^3/UL (140-415)
[2017-11-22] MEDS: ALBUTEROL/IPRATROPIUM (NEB) 3 ML AMP HHN ×2 (08:00→14:00)
[2017-11-22] MEDS: ASCORBIC ACID 500 MG TAB PO (09:01)
[2017-11-22] MEDS: ONDANSETRON 4 MG INJ IV (09:21)
[2017-11-22] MEDS: traMADol 50 MG TAB PO (10:08)
[2017-11-22 11:13] LABS: AMYLASE 73 U/L (11-123)
[2017-11-22] MEDS: SOD FERRIC GLUC COMPLX 125 MG in SOD CHLORIDE 0.9% 100 ML IVPB (12:18)
[2017-11-23 09:56] LABS: PATH REVIEW CH
== END 2017-11-22 16:54 | disposition home health service (06) | DRG 439 ==
LOC: TEL 11-13 17:48 → MS1 11-20 17:30 → E/R 03:20 → MS4 11-09 19:21 → MS3 06:10
PROC: 05HN33Z Insertion of Infusion Device into Left Internal Jugular Vein, Percutaneous Approach (ICD-10-PCS; principal; 2017-11-08)
DX: K85.10 Biliary acute pancreatitis without necrosis or infection (principal); J90 Pleural effusion, not elsewhere classified; R65.10 Systemic inflammatory response syndrome (SIRS) of non-infectious origin without acute organ dysfunction; E83.42 Hypomagnesemia; J98.11 Atelectasis; K57.90 Diverticulosis of intestine, part unspecified, without perforation or abscess without bleeding; R06.03 Acute respiratory distress; G89.18 Other acute postprocedural pain; Z96.89 Presence of other specified functional implants; E78.2 Mixed hyperlipidemia; K21.9 Gastro-esophageal reflux disease without esophagitis; K63.89 Other specified diseases of intestine; D50.0 Iron deficiency anemia secondary to blood loss (chronic); R07.0 Pain in throat; I70.90 Unspecified atherosclerosis; R00.0 Tachycardia, unspecified; R60.9 Edema, unspecified; Z90.49 Acquired absence of other specified parts of digestive tract; Z88.0 Allergy status to penicillin
CPT/HCPCS: 36415; 36569; 71045; 71250; 74018; 74176; 76705; 76937; 80048; 80053; 80061; 80307; 81001; 82150; 82962; 83036; 83605; 83690; 83735; 83880; 84100; 84134; 84145; 84478; 84484; 85014; 85018; 85025; 85610; 85730; 87040; 93005; 94640; 94664; 96374; 96375; 96376; 97110; 97116; 97163; 97530; 99285-25